=== PATIENT | female | born 1985 | race Caucasian/White ===

== ENCOUNTER 2016-08-15 22:45 | Emergency (ER) | payer MEDICAID, OTHER ==
[~2016-08-15] VITALS: Ht 170.2 cm; Wt 70.0 kg
[~2016-08-15 22:45] MED LIST: CEPH500C3 PO; PERC5TAB12 PO; PREN0.01 PO
[2016-08-15 22:47] VITALS: BP 135/88; PULSE 95; RESP 16; TEMP 97.5; O2SAT 97
--- NOTE | 2016-08-16 | PD ---
HPI Chief Complaint: Operations Manager Assistant Problem/Complaint Time Seen by Provider: 11:40 Travel History International Travel<30 days: No Contact w/Intl Traveler<30days: No Traveled to known affect area: No History of Present Illness HPI Examined in the presence of a female nurse. 30-year-old female presents for evaluation of vaginal discharge. Symptoms started 3 days ago. The discharge is white. She endorses slight dysuria, burning in nature as well. Denies abdominal pain, nausea or vomiting, fevers or chills, flank pain. She is sexually active with one partner. No new partners. Last menstrual period One week ago. No recent antibiotic use. No other complaints. PFSH Past Medical History Medical History: Denies Significant Hx ?: Not LMP: 08/08/2016 : 4 Para: 3 : 1 Past Surgical History Section: Yes (*3) Genitourinary Surgery: Yes (lithotripsy) Social History Alcohol Use: Yes Tobacco Use: Yes Substance Use: No Allergies-Medications (Allergen,Severity, Reaction): Coded Allergies: Morphine (Verified Adverse Reaction, Mild, 08/15/16) patient is not allergic to morphine; she just had mild GI symptoms but not an allergic reaction Reported Meds & Prescriptions Reported Meds & Active Scripts Active Metrogel Vaginal Gel (Metronidazole Vaginal Gel) 0.75 % Gel 1 Appl VAGINAL HS Reported Percocet 5-325 mg (Oxycodone/Acetaminophen) 5 Mg/325 Mg Tab 1 Tab PO Q4H PRN Review of Systems Except as stated in HPI: all other systems reviewed are Neg Physical Exam Narrative GENERAL: Well-developed well-nourished female in no acute distress SKIN: Warm and dry. CARDIOVASCULAR: Regular rate and rhythm. No murmur appreciated. RESPIRATORY: No accessory muscle use. Clear to auscultation. Breath sounds equal bilaterally. GASTROINTESTINAL: Abdomen soft, non-tender, nondistended. Hepatic and splenic margins not palpable. Pelvic examination performed in the presence of a female nurse: There is some yellow discharge noted in vaginal canal. No cervical motion tenderness or adnexal tenderness. MUSCULOSKELETAL: No obvious deformities. NEUROLOGICAL: Awake and alert. No obvious cranial nerve deficits. Motor grossly within normal limits. Normal speech. PSYCHIATRIC: Appropriate mood and affect; insight and judgment normal. Data Data Last Documented VS Vital Signs Date Time Temp Pulse Resp B/P Pulse Ox O2 Delivery O2 Flow Rate FiO2 08/15/16 22:47 97.5 95 16 135/88 97 Room Air Orders Gc And Chlamydia Pcr (08/15/16 23:39) Wet Prep Profile (08/15/16 23:39) Ed Urine Pregnancytest Poc (08/15/16 23:39) Urinalysis - C+S If Indicated (08/15/16 23:47) Azithromycin Powd Pack (Zithromax Powd P (08/16/16 00:30) Ceftriaxone Inj (Rocephin Inj) (08/16/16 00:30) Lidocaine 1% Inj (50 Ml) (Xylocaine 1% I (08/16/16 00:30) Labs Laboratory Tests Test 08/15/16 23:55 Urine Color YELLOW Urine Turbidity CLOUDY Urine pH 7.0 Urine Specific [place] 1.027 Urine Protein TRACE mg/dL Urine Glucose (UA) NEG mg/dL Urine Ketones NEG mg/dL Urine Occult Blood NEG Urine Nitrite NEG Urine Bilirubin NEG Urine Urobilinogen LESS THAN 2.0 MG/DL Urine Leukocyte Esterase TRACE Urine RBC 6 /hpf Urine WBC 6 /hpf Urine Squamous Epithelial 12 /hpf Cells Urine Amorphous Sediment RARE Urine Bacteria RARE /hpf Urine Mucus FEW /lpf Microscopic Urinalysis Comment CULT NOT INDICATED Clue Cells (Wet Prep) NONE SEEN Vaginal Trichomonas (Wet Prep) NONE SEEN Vaginal Yeast (Wet Prep) NONE SEEN MDM Medical Decision Making Medical Screen Exam Complete: Yes Emergency Medical Condition: Yes Medical Record Reviewed: Yes Differential Diagnosis Bacterial vaginosis, vaginitis, trichomoniasis, cervicitis, pelvic inflammatory disease, UTI Narrative Course 30-year-old female slight dysuria as well as vaginal discharge for 3 days. Pelvic examination reveals no evidence of pelvic inflammatory disease. Urinalysis, wet prep, GC probe was sent. Wet prep Is negative. Urinalysis reveals a contaminated specimen with multiple squamous epithelial cells, only 6 RBCs and 6 wbc's. Chlamydia and gonorrhea are currently pending and the patient was given Rocephin and azithromycin pending results. The patient does report multiple episodes of bacterial vaginosis in the past and this feels similar and therefore the patient will be treated empirically with MetroGel which she requests by name. She is stable for discharge. Diagnosis Primary Impression: Vaginal discharge Additional Instructions: Medication as prescribed. Follow-up with primary care physician as needed. Return for any emergent medical conditions. Med/Other Pt SpecificInfo: Prescription(s) given Scripts Metronidazole Vaginal Gel (Metrogel Vaginal Gel)0.75 % Gel1 Appl VAGINAL HS #1 TUBE Ref 1 Prov:Rob Sims MD 08/16/16 Disposition: 01 DISCHARGE HOME Condition: Stable Bola Candelario August 16, 2016 00:00
[2016-08-16 00:14] LABS: BACTERIA, URINE RARE /hpf; BLOOD, URINE NEG (NEG); COMMENT (UR) CULT NOT INDICATED; CULTURE IF INDICATED CULT NOT INDICATED; GLUCOSE,URINE NEG (NEG); KETONE, URINE NEG (NEG); MUCUS URINE FEW /lpf (OCC); NITRITE,URINE NEG (NEG); SQUAMOUS EPITHELIAL CELL URINE 12 /hpf (0-5); URINE COLOR YELLOW (YELLW/STRAW)
[2016-08-16] MEDS ORDERED: AZITHROMYCIN PWD FOR SUSP 1 GM PACKET PO ONE (00:30)
[2016-08-16] MEDS ORDERED: cefTRIAXone 250 MG VIAL IM ONE (00:30)
[2016-08-16] MEDS ORDERED: METR0.7528 VAGINAL (00:30)
[2016-08-16] MEDS ORDERED: LIDOCAINE HCL 1% 50 ML VIAL IM ONE (00:30)
[2016-08-16 01:59] LABS: CHLAMYDIA PCR NOT DETECTED (NOT DETECT); NEISSERIA PCR NOT DETECTED (NOT DETECT)
== END 2016-08-16 01:11 | disposition home or self-care (01) ==
LOC: NEPD 22:45
DX: N89.8 Other specified noninflammatory disorders of vagina (principal); Z72.0 Tobacco use
CPT/HCPCS: 81001; 84703; 87210; 87491; 87591; 96372; 99283; J0696